=== PATIENT | male | born 1985 | race Caucasian/White ===

== ENCOUNTER 2019-09-15 19:41 | Emergency (ER) | payer SELFPAY ==
[2019-09-15] MEDS ORDERED: Ibuprofen 800 MG TAB ONE (20:26)
== END 2019-09-15 20:34 ==
LOC: MADERS 19:41
DX: R51 Headache (principal); R42 Dizziness and giddiness
CPT/HCPCS: 99284

== ENCOUNTER 2019-09-17 04:56 | Emergency (ER) | payer SELFPAY ==
[2019-09-17 05:31] LABS: Hemoglobin 14.2 g/dL (14.0-18.0); Mean Corpuscular HGB CONC 34.2 g/dL (32.0-36.0); Mean Corpuscular Hemoglobin 30.5 pg (27.0-31.0); Mean Corpuscular Volume 89.3 fL (78.0-98.0); Platelet Count 209 thou/uL (130-400); RBC Distribution Width 11.6 % (11.5-14.5); Red Blood Cell (RBC) Count 4.66 mill/uL (4.70-6.10); White Blood Cell (WBC) Count 7.7 thou/uL (4.8-10.8)
[2019-09-17 05:32] LABS: #Basophils 0.1 thou/uL (0.0-0.2); #Eosinphils 0.4 thou/uL (0.0-0.7); #Lymphocytes 3.5 thou/uL (1.20-3.40); #Monocytes 0.8 thou/uL (0.11-0.59); #Neutrophils 2.9 thou/uL (1.40-6.50); %Basophils 1.6 % (0.0-1.0); %Eosinophils 5.7 % (0.0-10.0); %Lymphocytes 45.8 % (21.0-51.0); %Monocytes 9.7 % (0.0-10.0); %Neutrophils 37.2 % (42.0-75.0)
[2019-09-17 05:44] LABS: ALT (SGPT) 59 U/L (8-55); AST (SGOT) 31 U/L (5-34); Albumin 4.2 g/dL (3.5-5.0); Alkaline Phosphatase 71 U/L (40-110); Anion Gap 16 mmol/L (10-20); BUN (Urea Nitrogen) 15 mg/dL (8.9-20.6); Bilirubin, Total 0.2 mg/dL (0.2-1.2); Calc. Creatinine Clearance 0 mL/min (70-130); Calcium 8.2 mg/dL (7.8-10.44); Carbon Dioxide 17 mmol/L (22-29); Chloride 110 mmol/L (98-107); Estimated GFR-MDRD Greater than 90; Globulin 2.2 g/dL (2.4-3.5); Glucose 116 mg/dL (70-105); Potassium 4.2 mmol/L (3.5-5.1); Protein, Total 6.4 g/dL (6.0-8.3); Sodium 139 mmol/L (136-145)
[2019-09-17] MEDS ORDERED: Lorazepam 1 MG TAB ONE (05:46)
[2019-09-17 06:08] LABS: Bilirubin Negative (Negative); Blood, Urine Negative (Negative); Clarity Clear (Clear); Glucose, Urine (Dipstick) Negative (Negative); Leukocyte Negative (Negative); Nitrite Negative (Negative); Protein, Urine (Dipstick) 30 mg/dL (Neg-Trace); Urobilinogen 0.2 mg/dL (Less than 2)
[2019-09-17 06:13] LABS: Bacteria/HPF Rare-Few HPF (None Seen); RBC/HPF 0-3 HPF (0-3); Squamous Epithelial 0-3 HPF (0-3); WBC/HPF 0-3 HPF (0-3)
[2019-09-17] MEDS ORDERED: Sodium Chloride 0.9% 1,000 ML BAG ONE (06:31)
--- NOTE | 2019-09-17 08:46 | RAD ---
PORTABLE CHEST: DATE; 09/17/2019. PROVIDED CLINICAL HISTORY: Seizure. FINDINGS: Cardiac and mediastinal silhouette is within normal limits. No focal consolidation, pleural fluid, o r pneumothorax apparent. IMPRESSION: No evidence for an acute cardiopulmonary process. POS: [facility]
== END 2019-09-17 06:28 | disposition home or self-care (01) ==
LOC: MADERS 04:56
DX: G40.909 Epilepsy, unspecified, not intractable, without status epilepticus (principal)
CPT/HCPCS: 71045; 80053; 81003; 81015; 83605; 85025; 93005; 96360; J7050

== ENCOUNTER 2019-10-12 23:30 | Emergency (ER) | payer SELFPAY ==
[2019-10-12 23:48] LABS: #Basophils 0.1 thou/uL (0.0-0.2); #Eosinphils 0.5 thou/uL (0.0-0.7); #Lymphocytes 3.1 thou/uL (1.20-3.40); #Monocytes 0.9 thou/uL (0.11-0.59); #Neutrophils 3.7 thou/uL (1.40-6.50); %Basophils 1.4 % (0.0-1.0); %Eosinophils 6.4 % (0.0-10.0); %Lymphocytes 36.7 % (21.0-51.0); %Monocytes 10.8 % (0.0-10.0); %Neutrophils 44.7 % (42.0-75.0); Hemoglobin 14.6 g/dL (14.0-18.0); Mean Corpuscular Hemoglobin 29.9 pg (27.0-31.0); Mean Corpuscular Volume 90.7 fL (78.0-98.0); Mean Platelet Volume 6.2 fL (7.4-10.4); Platelet Count 252 thou/uL (130-400); RBC Distribution Width 12.2 % (11.5-14.5); Red Blood Cell (RBC) Count 4.87 mill/uL (4.70-6.10); White Blood Cell (WBC) Count 8.4 thou/uL (4.8-10.8)
[2019-10-12] MEDS ORDERED: Sodium Chloride 0.9% 1,000 ML ONE (23:50)
[2019-10-13 00:02] LABS: Bilirubin Negative (Negative); Blood, Urine Trace (Negative); Clarity Clear (Clear); Glucose, Urine (Dipstick) Negative (Negative); Leukocyte Negative (Negative); Nitrite Negative (Negative); Protein, Urine (Dipstick) 30 mg/dL (Neg-Trace); Urobilinogen 0.2 mg/dL (Less than 2)
[2019-10-13 00:07] LABS: ALT (SGPT) 44 U/L (8-55); AST (SGOT) 26 U/L (5-34); Albumin 4.4 g/dL (3.5-5.0); Alkaline Phosphatase 68 U/L (40-110); Anion Gap 19 mmol/L (10-20); BUN (Urea Nitrogen) 9 mg/dL (8.9-20.6); Bilirubin, Total 0.2 mg/dL (0.2-1.2); Calc. Creatinine Clearance 0 mL/min (70-130); Calcium 9.1 mg/dL (7.8-10.44); Carbon Dioxide 21 mmol/L (22-29); Chloride 103 mmol/L (98-107); Estimated GFR-MDRD Greater than 90; Globulin 2.6 g/dL (2.4-3.5); Glucose 85 mg/dL (70-105); Sodium 139 mmol/L (136-145)
[2019-10-13 00:09] LABS: Bacteria/HPF None Seen HPF (None Seen); RBC/HPF 0-3 HPF (0-3); Squamous Epithelial None Seen HPF (0-3); WBC/HPF None Seen HPF (0-3)
[2019-10-13 00:12] LABS: Amphetamine Not Detected (NotDetected); Barbiturates Screen Detected (NotDetected); Benzodiazepine Screen Not Detected (NotDetected); Cocaine Metabolite Screen Not Detected (NotDetected); Medtox Control Line Valid? VALID (VALID); Methadone Not Detected (NotDetected); Methamphetamine Not Detected (NotDetected); Opiate Screen Not Detected (NotDetected); Oxycodone Screen Not Detected (NotDetected); Phencyclidine (PCP) Not Detected (NotDetected); THC/Cannabinoid Screen Not Detected (NotDetected); Tricyclic Screen Not Detected (NotDetected)
== END 2019-10-13 00:35 ==
LOC: MADERS 23:30
DX: G40.909 Epilepsy, unspecified, not intractable, without status epilepticus (principal); Z87.891 Personal history of nicotine dependence; Z79.899 Other long term (current) drug therapy
CPT/HCPCS: 80053; 80185; 80306; 81003; 81015; 85025; 99284; J7050

== ENCOUNTER 2020-01-15 10:38 | Emergency (ER) | payer SELFPAY ==
[2020-01-15] MEDS ORDERED: Ondansetron ODT 4 MG TAB ONE (11:13)
--- NOTE | 2020-01-15 11:20 | CT ---
CT BRAIN NONCONTRAST: DATE: 01/15/2020 HISTORY: 34-year-old male status post acute head trauma from fall due to seizure FINDINGS: There is no evidence of acute intra-axial or extra-axial hemorrhage. There is no midline shift or any other mass effect. There is no extra-axial fluid collection. There is no evidence of obstructive hydrocephalus. Calvarium is intact. Superficial soft tissue swelling of right periorbital and right f orehead . IMPRESSION: 1. No acute intracranial findings. 2. Acute, traumatic, right periorbital and right frontal scalp contusion.
[2020-01-15 11:33] LABS: #Basophils 0.1 thou/uL (0.0-0.2); #Eosinphils 0.1 thou/uL (0.0-0.7); #Lymphocytes 1.8 thou/uL (1.20-3.40); #Monocytes 0.7 thou/uL (0.11-0.59); #Neutrophils 8.4 thou/uL (1.40-6.50); %Eosinophils 0.8 % (0.0-10.0); %Lymphocytes 16.2 % (21.0-51.0); %Monocytes 6.4 % (0.0-10.0); %Neutrophils 75.7 % (42.0-75.0); Mean Corpuscular HGB CONC 33.4 g/dL (32.0-36.0); Mean Corpuscular Hemoglobin 29.1 pg (27.0-31.0); Mean Corpuscular Volume 87.3 fL (78.0-98.0); Mean Platelet Volume 6.4 fL (7.4-10.4); Platelet Count 241 thou/uL (130-400); RBC Distribution Width 11.5 % (11.5-14.5); Red Blood Cell (RBC) Count 5.14 mill/uL (4.70-6.10)
[2020-01-15 11:51] LABS: ALT (SGPT) 32 U/L (8-55); AST (SGOT) 24 U/L (5-34); Acetaminophen Less than 6.0 mcg/mL (10.0-30.0); Albumin 4.5 g/dL (3.5-5.0); Alcohol Less than 10 mg/dL (Less than 10); Alkaline Phosphatase 82 U/L (40-110); Anion Gap 17 mmol/L (10-20); BUN (Urea Nitrogen) 10 mg/dL (8.9-20.6); Bilirubin, Total 0.3 mg/dL (0.2-1.2); Calc. Creatinine Clearance 0 mL/min (70-130); Calcium 8.5 mg/dL (7.8-10.44); Carbon Dioxide 22 mmol/L (22-29); Chloride 103 mmol/L (98-107); Estimated GFR-MDRD Greater than 90; Globulin 2.5 g/dL (2.4-3.5); Glucose 126 mg/dL (70-105); Potassium 4.5 mmol/L (3.5-5.1); Salicylate Less than 8.0 mg/dL (15.0-30.0); Sodium 137 mmol/L (136-145)
[2020-01-15] MEDS ORDERED: Lidocaine 1% w/Epinephrine 1:100K 20 ML VIAL ONE (11:55)
--- NOTE | 2020-01-15 12:22 | CT ---
CT CERVICAL SPINE WITHOUT CONTRAST: HISTORY: Seizure. Fall with pain. COMPARISON: CT of the cervical spine from 2014. FINDINGS: The mastoids are clear. The visualized mandible is intact. The odontoid process is intact. Occipit al condyles are intact. No acute traumatic facet joint widening. Transverse processes are intact. Lung apices are clear. Paraspinal soft tissues are unremarkable. Small reactive cervical lymph nodes. Visualized posterior ribs are intact. Large erosion with loss of normal focal surface of the right maxillary alveolar bone at the 1st molar roots. IMPRESSION: 1. No acute fracture or malalignment of the cervical spine. 2. Severe erosive changes along the root of the right 1st maxillary molar alveolar bone. POS: [facility]
--- NOTE | 2020-01-15 12:31 | CT ---
CT FACE WITHOUT CONTRAST: HISTORY: Seizure, fall. COMPARISON: None. FINDINGS: The mandible is intact. Large erosions along the root of the right alveolar maxillary bone at the 3r d molar. Upper cervical spine is intact. Mastoids are clear. The zygoma and zygomatic arches are intact. The medial orbital rinaldi, lateral o rbital rinaldi, orbital floor, and orbital roots are intact. Right periorbital soft tissue contusion. Abnormal appearance of the lens of the right globe. The right lens does not appear to be as discoid as the left lens. This, however, could be due to motion. Evidence of prior mucosal sinus surgery. IMPRESSION: 1. No acute fracture of the face. 2. Right periorbital soft tissue contusion. 3. On the axial images, there appears to be an elongation of the right orbital limb, although on the sagittal views does not appear as irregular and could be sequelae of motion, although direct visuali zation and ophthalmologic consultation is advised. 4. 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 5. Large erosion of the right maxillary alveolar bone with erosion of the focal surface at location of the 3rd molar roots and 1st premolar toward the root of the 1st premolar is angulated laterally th rough the focal alveolar bone defect. POS: [facility]
== END 2020-01-15 13:25 | disposition home or self-care (01) ==
LOC: MADERS 10:38
DX: G40.909 Epilepsy, unspecified, not intractable, without status epilepticus (principal); S01.81XA Laceration without foreign body of other part of head, initial encounter; Z87.891 Personal history of nicotine dependence
CPT/HCPCS: 12002; 70450; 70486; 72125; 80053; 80185; 80307; 85025; Q0162

== ENCOUNTER 2020-01-21 11:39 | Emergency (ER) | payer SELFPAY | END 2020-01-21 12:14 | disposition home or self-care (01) | LOC: MADERS 11:39 | DX: S01.111D Laceration without foreign body of right eyelid and periocular area, subsequent encounter (principal); Z79.899 Other long term (current) drug therapy; Z87.891 Personal history of nicotine dependence; W22.8XXD Striking against or struck by other objects, subsequent encounter ==

== ENCOUNTER 2020-12-07 03:29 | Emergency (ER) | payer SELFPAY ==
[2020-12-07] MEDS ORDERED: Clindamycin 150 MG CAP ONE (04:01)
[2020-12-07 04:19] LABS: Hemoglobin 15.9 g/dL (14.0-18.0); Mean Corpuscular HGB CONC 34.8 g/dL (32.0-36.0); Mean Corpuscular Hemoglobin 30.8 pg (27.0-31.0); Mean Corpuscular Volume 88.5 fL (78.0-98.0); Mean Platelet Volume 7.4 fL (7.4-10.4); Platelet Count 213 thou/uL (130-400); RBC Distribution Width 11.2 % (11.5-14.5); Red Blood Cell (RBC) Count 5.17 mill/uL (4.70-6.10); White Blood Cell (WBC) Count 15.7 thou/uL (4.8-10.8)
[2020-12-07 04:28] LABS: Eosinophils 2 % (0-10); Lymphocytes 14 % (21-51); MDiff Complete? YES; Monocytes 1 % (0-10); Neutrophil 83 % (42-75); Platelet Morphology Comment Appears Adequate; RBC Morphology Normal
[2020-12-07 04:31] LABS: ALT (SGPT) 16 U/L (8-55); AST (SGOT) 15 U/L (5-34); Albumin 4.4 g/dL (3.5-5.0); Alkaline Phosphatase 94 U/L (40-110); Anion Gap 15 mmol/L (10-20); BUN (Urea Nitrogen) 8 mg/dL (8.9-20.6); Bilirubin, Total 0.4 mg/dL (0.2-1.2); Calc. Creatinine Clearance 0 mL/min (70-130); Calcium 8.8 mg/dL (7.8-10.44); Carbon Dioxide 21 mmol/L (22-29); Chloride 107 mmol/L (98-107); Globulin 2.2 g/dL (2.4-3.5); Glucose 107 mg/dL (70-105); Potassium 3.8 mmol/L (3.5-5.1); Protein, Total 6.6 g/dL (6.0-8.3); Sodium 139 mmol/L (136-145)
== END 2020-12-07 04:53 | disposition home or self-care (01) ==
LOC: MADERS 03:29
DX: K04.7 Periapical abscess without sinus (principal); R56.9 Unspecified convulsions; Z87.891 Personal history of nicotine dependence; Z79.899 Other long term (current) drug therapy
CPT/HCPCS: 80053; 83605; 85025; 99284

== ENCOUNTER 2021-01-07 09:37 | Emergency (ER) | payer SELFPAY | END 2021-01-07 10:15 | disposition home or self-care (01) | LOC: MADERS 09:37 | DX: R20.2 Paresthesia of skin (principal); F17.210 Nicotine dependence, cigarettes, uncomplicated; Z79.899 Other long term (current) drug therapy | CPT/HCPCS: 99283 ==

== ENCOUNTER 2021-02-07 06:15 | Emergency (ER) | payer SELFPAY ==
[2021-02-07] MEDS ORDERED: Lactated Ringer's 1,000 ML ONE (06:35)
[2021-02-07 06:54] LABS: #Basophils 0.1 thou/uL (0.0-0.2); #Eosinphils 0.2 thou/uL (0.0-0.7); #Lymphocytes 2.3 thou/uL (1.20-3.40); #Monocytes 0.7 thou/uL (0.11-0.59); #Neutrophils 5.8 thou/uL (1.40-6.50); %Basophils 1.1 % (0.0-1.0); %Eosinophils 2.4 % (0.0-10.0); %Lymphocytes 25.5 % (21.0-51.0); %Monocytes 7.7 % (0.0-10.0); %Neutrophils 63.4 % (42.0-75.0); Hemoglobin 17.7 g/dL (14.0-18.0); Mean Corpuscular HGB CONC 33.3 g/dL (32.0-36.0); Mean Corpuscular Volume 89.9 fL (78.0-98.0); Platelet Count 253 thou/uL (130-400); RBC Distribution Width 11.5 % (11.5-14.5); Red Blood Cell (RBC) Count 5.92 mill/uL (4.70-6.10); White Blood Cell (WBC) Count 9.2 thou/uL (4.8-10.8)
[2021-02-07 07:13] LABS: ALT (SGPT) 23 U/L (8-55); AST (SGOT) 16 U/L (5-34); Albumin 5.1 g/dL (3.5-5.0); Alkaline Phosphatase 118 U/L (40-110); Anion Gap 18 mmol/L (10-20); BUN (Urea Nitrogen) 6 mg/dL (8.9-20.6); Bilirubin, Total 0.5 mg/dL (0.2-1.2); Calc. Creatinine Clearance 0 mL/min (70-130); Carbon Dioxide 23 mmol/L (22-29); Chloride 103 mmol/L (98-107); Globulin 2.9 g/dL (2.4-3.5); Glucose 87 mg/dL (70-105); Potassium 3.6 mmol/L (3.5-5.1); Sodium 140 mmol/L (136-145)
[2021-02-07 07:21] LABS: Acetaminophen Less than 6.0 mcg/mL (10.0-30.0); Alcohol Less than 10 mg/dL (Less than 10); Salicylate Less than 8.0 mg/dL (15.0-30.0)
== END 2021-02-07 08:06 | disposition home or self-care (01) ==
LOC: MADERS 06:15
DX: R41.3 Other amnesia (principal); G40.909 Epilepsy, unspecified, not intractable, without status epilepticus; Z79.899 Other long term (current) drug therapy; F17.210 Nicotine dependence, cigarettes, uncomplicated
CPT/HCPCS: 70450; 80053; 80307; 84443; 85025; 93005; J7120

== ENCOUNTER 2021-02-09 11:00 | Emergency (ER) | payer SELFPAY ==
[~2021-02-09 11:00] MED LIST: Sodium Chloride 0.9% 100 ML BAG ONE
[2021-02-09 12:00] LABS: #Basophils 0.2 thou/uL (0.0-0.2); #Eosinphils 0.1 thou/uL (0.0-0.7); #Lymphocytes 1.7 thou/uL (1.20-3.40); #Monocytes 1.6 thou/uL (0.11-0.59); %Basophils 1.4 % (0.0-1.0); %Eosinophils 0.5 % (0.0-10.0); %Lymphocytes 10.3 % (21.0-51.0); %Monocytes 9.4 % (0.0-10.0); %Neutrophils 78.5 % (42.0-75.0); Hemoglobin 16.7 g/dL (14.0-18.0); Mean Corpuscular HGB CONC 33.1 g/dL (32.0-36.0); Mean Corpuscular Hemoglobin 29.9 pg (27.0-31.0); Mean Corpuscular Volume 90.1 fL (78.0-98.0); Platelet Count 242 thou/uL (130-400); RBC Distribution Width 11.6 % (11.5-14.5); Red Blood Cell (RBC) Count 5.59 mill/uL (4.70-6.10); White Blood Cell (WBC) Count 16.6 thou/uL (4.8-10.8)
[2021-02-09 12:14] LABS: ALT (SGPT) 21 U/L (8-55); AST (SGOT) 21 U/L (5-34); Alkaline Phosphatase 109 U/L (40-110); Anion Gap 17 mmol/L (10-20); BUN (Urea Nitrogen) 10 mg/dL (8.9-20.6); Bilirubin, Total 0.7 mg/dL (0.2-1.2); Calc. Creatinine Clearance 0 mL/min (70-130); Carbon Dioxide 21 mmol/L (22-29); Chloride 104 mmol/L (98-107); Globulin 2.5 g/dL (2.4-3.5); Glucose 111 mg/dL (70-105); Potassium 3.9 mmol/L (3.5-5.1); Protein, Total 7.5 g/dL (6.0-8.3); Sodium 138 mmol/L (136-145)
[2021-02-09] MEDS ORDERED: Lorazepam 2 MG/ML VIAL ONE (14:21)
[2021-02-09] MEDS ORDERED: Fosphenytoin Sodium 500 mg/10 ml Vial ONE (14:54)
== END 2021-02-09 21:35 | disposition home or self-care (01) ==
LOC: MADERS 11:00
DX: G40.909 Epilepsy, unspecified, not intractable, without status epilepticus (principal); F17.210 Nicotine dependence, cigarettes, uncomplicated; Z79.899 Other long term (current) drug therapy
CPT/HCPCS: 36415; 71045; 80053; 83605; 85025; 93005; 96365; 96375; J2060; J3490; Q2009

== ENCOUNTER 2021-02-10 21:52 | Emergency (ER) | payer SELFPAY ==
[2021-02-10 22:25] LABS: #Basophils 0.2 thou/uL (0.0-0.2); #Eosinphils 0.1 thou/uL (0.0-0.7); #Lymphocytes 1.6 thou/uL (1.20-3.40); %Basophils 1.4 % (0.0-1.0); %Eosinophils 0.4 % (0.0-10.0); %Lymphocytes 13.6 % (21.0-51.0); %Monocytes 8.2 % (0.0-10.0); %Neutrophils 76.3 % (42.0-75.0); Hemoglobin 16.7 g/dL (14.0-18.0); Mean Corpuscular HGB CONC 33.4 g/dL (32.0-36.0); Mean Corpuscular Hemoglobin 30.4 pg (27.0-31.0); Mean Platelet Volume 6.8 fL (7.4-10.4); Platelet Count 275 thou/uL (130-400); RBC Distribution Width 11.3 % (11.5-14.5); Red Blood Cell (RBC) Count 5.48 mill/uL (4.70-6.10); White Blood Cell (WBC) Count 11.8 thou/uL (4.8-10.8)
[2021-02-10 22:48] LABS: ALT (SGPT) 20 U/L (8-55); AST (SGOT) 21 U/L (5-34); Albumin 5.1 g/dL (3.5-5.0); Alkaline Phosphatase 115 U/L (40-110); Anion Gap 23 mmol/L (10-20); BUN (Urea Nitrogen) 9 mg/dL (8.9-20.6); Bilirubin, Total 0.9 mg/dL (0.2-1.2); Calc. Creatinine Clearance 0 mL/min (70-130); Calcium 10.3 mg/dL (7.8-10.44); Carbon Dioxide 19 mmol/L (22-29); Chloride 102 mmol/L (98-107); Globulin 2.6 g/dL (2.4-3.5); Glucose 108 mg/dL (70-105); Potassium 4.1 mmol/L (3.5-5.1); Protein, Total 7.7 g/dL (6.0-8.3); Sodium 140 mmol/L (136-145)
[2021-02-10 22:49] LABS: Acetaminophen Less than 6.0 mcg/mL (10.0-30.0); Alcohol Less than 10 mg/dL (Less than 10); Salicylate Less than 8.0 mg/dL (15.0-30.0)
[2021-02-10 23:34] LABS: Bilirubin Moderate (Negative); Blood, Urine Trace (Negative); Clarity Clear (Clear); Glucose, Urine (Dipstick) Negative (Negative); Ketone, Urine > or equal to 80 mg/dL (Negative); Leukocyte Negative (Negative); Nitrite Negative (Negative); Protein, Urine (Dipstick) 100 mg/dL (Neg-Trace); pH, Urine 5.5 (5.0-9.0)
[2021-02-10 23:42] LABS: Bacteria/HPF None Seen HPF (None Seen); RBC/HPF 0-3 HPF (0-3); Squamous Epithelial 0-3 HPF (0-3); WBC/HPF 0-3 HPF (0-3)
[2021-02-10 23:44] LABS: Amphetamine Not Detected (NotDetected); Barbiturates Screen Detected (NotDetected); Benzodiazepine Screen Detected (NotDetected); Cocaine Metabolite Screen Not Detected (NotDetected); Medtox Control Line Valid? VALID (VALID); Methadone Not Detected (NotDetected); Methamphetamine Not Detected (NotDetected); Opiate Screen Not Detected (NotDetected); Oxycodone Screen Not Detected (NotDetected); Phencyclidine (PCP) Not Detected (NotDetected); THC/Cannabinoid Screen Not Detected (NotDetected); Tricyclic Screen Not Detected (NotDetected)
== END 2021-02-11 03:29 | disposition home or self-care (01) ==
LOC: MADERS 21:52
DX: F23 Brief psychotic disorder (principal); E86.0 Dehydration; G43.909 Migraine, unspecified, not intractable, without status migrainosus; F17.210 Nicotine dependence, cigarettes, uncomplicated; Z79.899 Other long term (current) drug therapy
CPT/HCPCS: 80053; 80306; 80307; 81003; 81015; 82550; 83605; 84443; 85025; 99285

== ENCOUNTER 2021-02-11 14:05 | Emergency (ER) | payer SELFPAY ==
[2021-02-12 10:13] LABS: Amphetamine Not Detected (NotDetected); Barbiturates Screen Detected (NotDetected); Benzodiazepine Screen Not Detected (NotDetected); Cocaine Metabolite Screen Not Detected (NotDetected); Medtox Control Line Valid? VALID (VALID); Methadone Not Detected (NotDetected); Methamphetamine Not Detected (NotDetected); Opiate Screen Not Detected (NotDetected); Oxycodone Screen Not Detected (NotDetected); Phencyclidine (PCP) Not Detected (NotDetected); THC/Cannabinoid Screen Not Detected (NotDetected); Tricyclic Screen Not Detected (NotDetected)
[2021-02-12 10:14] LABS: Clarity Clear (Clear); Glucose, Urine (Dipstick) Negative (Negative); Leukocyte Negative (Negative); Nitrite Negative (Negative); Protein, Urine (Dipstick) 30 mg/dL (Neg-Trace); Specific Gravity, Urine 1.023 (1.002-1.036); pH, Urine 5.5 (5.0-9.0)
[2021-02-12 10:15] LABS: Bacteria/HPF Rare-Few HPF (None Seen); Bilirubin Moderate (Negative); Blood, Urine Negative (Negative); Ketone, Urine > or equal to 80 mg/dL (Negative); RBC/HPF 0-3 HPF (0-3); Squamous Epithelial 0-3 HPF (0-3); WBC/HPF 0-3 HPF (0-3)
[2021-02-12 10:16] LABS: Hemoglobin 15.5 g/dL (14.0-18.0); Red Blood Cell (RBC) Count 5.04 mill/uL (4.70-6.10); White Blood Cell (WBC) Count 11.8 thou/uL (4.8-10.8)
[2021-02-12 10:17] LABS: #Neutrophils 7.6 thou/uL (1.40-6.50); %Basophils 2.1 % (0.0-1.0); %Eosinophils 2.6 % (0.0-10.0); %Monocytes 9.7 % (0.0-10.0); %Neutrophils 64.7 % (42.0-75.0); Mean Corpuscular HGB CONC 33.9 g/dL (32.0-36.0); Mean Corpuscular Hemoglobin 30.7 pg (27.0-31.0); Mean Corpuscular Volume 90.6 fL (78.0-98.0); Platelet Count 214 thou/uL (130-400); RBC Distribution Width 11.1 % (11.5-14.5)
[2021-02-12 10:18] LABS: #Basophils 0.2 thou/uL (0.0-0.2); #Eosinphils 0.3 thou/uL (0.0-0.7); #Lymphocytes 2.5 thou/uL (1.20-3.40); #Monocytes 1.1 thou/uL (0.11-0.59)
[2021-02-12 10:19] LABS: Albumin 4.6 g/dL (3.5-5.0); Anion Gap 21 mmol/L (10-20); BUN (Urea Nitrogen) 5 mg/dL (8.9-20.6); Calc. Creatinine Clearance 0 mL/min (70-130); Calcium 9.8 mg/dL (7.8-10.44); Carbon Dioxide 18 mmol/L (22-29); Chloride 102 mmol/L (98-107); Globulin 2.4 g/dL (2.4-3.5); Glucose 76 mg/dL (70-105); Potassium 3.2 mmol/L (3.5-5.1); Sodium 138 mmol/L (136-145)
[2021-02-12 10:20] LABS: ALT (SGPT) 19 U/L (8-55); AST (SGOT) 20 U/L (5-34); Acetaminophen Less than 6.0 mcg/mL (10.0-30.0); Alcohol Less than 10 mg/dL (Less than 10); Alkaline Phosphatase 110 U/L (40-110); Salicylate Less than 8.0 mg/dL (15.0-30.0)
== END 2021-02-11 16:24 | disposition home or self-care (01) ==
LOC: MADERS 14:05
DX: G40.909 Epilepsy, unspecified, not intractable, without status epilepticus (principal); F17.210 Nicotine dependence, cigarettes, uncomplicated; Z79.899 Other long term (current) drug therapy
CPT/HCPCS: 70450; 71045; 80053; 80185; 80306; 80307; 81001; 85025

== ENCOUNTER 2021-03-15 22:29 | Emergency (ER) | payer SELFPAY | END 2021-03-15 22:47 | disposition home or self-care (01) | LOC: MADERS 22:29 | DX: G40.909 Epilepsy, unspecified, not intractable, without status epilepticus (principal); F17.210 Nicotine dependence, cigarettes, uncomplicated; Z79.899 Other long term (current) drug therapy | CPT/HCPCS: 99284 ==

== ENCOUNTER 2021-03-23 20:26 | Emergency (ER) | payer SELFPAY | END 2021-03-23 23:40 | disposition home or self-care (01) | LOC: MADERS 20:26 | DX: G40.909 Epilepsy, unspecified, not intractable, without status epilepticus (principal); Z87.891 Personal history of nicotine dependence; Z79.899 Other long term (current) drug therapy | CPT/HCPCS: 36415; 80185; 99284 ==

== ENCOUNTER 2021-05-19 20:51 | Emergency (ER) | payer SELFPAY ==
[2021-05-19 21:49] LABS: Anion Gap 14 mmol/L (10-20); BUN (Urea Nitrogen) 15 mg/dL (8.9-20.6); Calc. Creatinine Clearance 0 mL/min (70-130); Calcium 9.6 mg/dL (7.8-10.44); Carbon Dioxide 26 mmol/L (22-29); Chloride 103 mmol/L (98-107); Glucose 95 mg/dL (70-105); Sodium 139 mmol/L (136-145)
[2021-05-20 01:58] LABS: Dilantin 8.6 ug/mL (10.0-20.0)
== END 2021-05-19 21:57 | disposition home or self-care (01) ==
LOC: MADERS 20:51
DX: R20.2 Paresthesia of skin (principal); G40.909 Epilepsy, unspecified, not intractable, without status epilepticus; Z87.891 Personal history of nicotine dependence
CPT/HCPCS: 80048; 80185; 99284

== ENCOUNTER 2021-05-22 15:00 | Emergency (ER) | payer SELFPAY ==
[2021-05-22] MEDS ORDERED: Sodium Chloride 0.9% 100 ML ONE (15:39)
[2021-05-22] MEDS ORDERED: Fosphenytoin Sodium 500 mg/10 ml Vial ONE ×2 (15:39→18:47)
[2021-05-22 15:56] LABS: #Basophils 0.1 thou/uL (0.0-0.2); #Eosinphils 0.2 thou/uL (0.0-0.7); #Lymphocytes 1.9 thou/uL (1.20-3.40); #Monocytes 0.6 thou/uL (0.11-0.59); #Neutrophils 4.7 thou/uL (1.40-6.50); %Basophils 1.6 % (0.0-1.0); %Eosinophils 3.1 % (0.0-10.0); %Lymphocytes 25.2 % (21.0-51.0); %Monocytes 7.8 % (0.0-10.0); %Neutrophils 62.3 % (42.0-75.0); Hemoglobin 15.5 g/dL (14.0-18.0); Mean Corpuscular HGB CONC 33.4 g/dL (32.0-36.0); Mean Corpuscular Hemoglobin 29.6 pg (27.0-31.0); Mean Corpuscular Volume 88.6 fL (78.0-98.0); Mean Platelet Volume 5.5 fL (7.4-10.4); Platelet Count 202 thou/uL (130-400); RBC Distribution Width 11.1 % (11.5-14.5); Red Blood Cell (RBC) Count 5.23 mill/uL (4.70-6.10); White Blood Cell (WBC) Count 7.5 thou/uL (4.8-10.8)
[2021-05-22 16:01] LABS: ALT (SGPT) 36 U/L (8-55); AST (SGOT) 17 U/L (5-34); Albumin 4.4 g/dL (3.5-5.0); Alkaline Phosphatase 75 U/L (40-110); Anion Gap 12 mmol/L (10-20); BUN (Urea Nitrogen) 10 mg/dL (8.9-20.6); Bilirubin, Total Less than 0.2 mg/dL (0.2-1.2); Calc. Creatinine Clearance 0 mL/min (70-130); Calcium 9.3 mg/dL (7.8-10.44); Carbon Dioxide 24 mmol/L (22-29); Chloride 106 mmol/L (98-107); Globulin 2.5 g/dL (2.4-3.5); Glucose 101 mg/dL (70-105); Potassium 4.1 mmol/L (3.5-5.1); Protein, Total 6.9 g/dL (6.0-8.3); Sodium 138 mmol/L (136-145)
[2021-05-22] MEDS ORDERED: Lorazepam 2 MG/ML VIAL ONE (17:10)
[2021-05-22] MEDS ORDERED: Sodium Chloride 0.9% 1,000 ML ONE (17:33)
[2021-05-22 18:22] LABS: Dilantin Less than 1.8 ug/mL (10.0-20.0)
[2021-05-22 19:38] LABS: Lactic Acid 2.9 mmol/L (0.5-2.2)
== END 2021-05-22 20:56 | disposition short-term general hospital (02) ==
LOC: MADERS 15:00
DX: R56.9 Unspecified convulsions (principal); J98.11 Atelectasis; Z87.891 Personal history of nicotine dependence; Z79.899 Other long term (current) drug therapy
CPT/HCPCS: 36415; 36416; 71045; 80053; 80185; 83605; 85025; 96365; 96366; 96375; J2060; J3490; J7050; Q2009

== ENCOUNTER 2021-06-18 19:57 | Emergency (ER) | payer SELFPAY ==
[2021-06-18] MEDS ORDERED: Ketorolac Tromethamine 30 MG/ML VIAL ONE (21:30)
[2021-06-18] MEDS ORDERED: Lorazepam 2 MG/ML VIAL ONE (21:30)
[2021-06-18] MEDS ORDERED: Lactated Ringer's 1,000 ML ONE (21:30)
[2021-06-18 21:49] LABS: #Basophils 0.1 thou/uL (0.0-0.2); #Eosinphils 0.3 thou/uL (0.0-0.7); #Lymphocytes 2.4 thou/uL (1.20-3.40); #Monocytes 0.8 thou/uL (0.11-0.59); #Neutrophils 3.8 thou/uL (1.40-6.50); %Eosinophils 3.6 % (0.0-10.0); %Lymphocytes 32.6 % (21.0-51.0); %Monocytes 11.3 % (0.0-10.0); %Neutrophils 50.5 % (42.0-75.0); Hemoglobin 15.6 g/dL (14.0-18.0); Mean Corpuscular HGB CONC 33.5 g/dL (32.0-36.0); Mean Corpuscular Hemoglobin 29.3 pg (27.0-31.0); Mean Corpuscular Volume 87.4 fL (78.0-98.0); Mean Platelet Volume 5.6 fL (7.4-10.4); Platelet Count 237 thou/uL (130-400); RBC Distribution Width 10.6 % (11.5-14.5); Red Blood Cell (RBC) Count 5.33 mill/uL (4.70-6.10); White Blood Cell (WBC) Count 7.5 thou/uL (4.8-10.8)
[2021-06-18 22:07] LABS: ALT (SGPT) 30 U/L (8-55); AST (SGOT) 16 U/L (5-34); Albumin 4.6 g/dL (3.5-5.0); Alkaline Phosphatase 78 U/L (40-110); Anion Gap 16 mmol/L (10-20); BUN (Urea Nitrogen) 11 mg/dL (8.9-20.6); Bilirubin, Total 0.3 mg/dL (0.2-1.2); Calc. Creatinine Clearance 0 mL/min (70-130); Calcium 8.7 mg/dL (7.8-10.44); Carbon Dioxide 24 mmol/L (22-29); Chloride 103 mmol/L (98-107); Globulin 2.3 g/dL (2.4-3.5); Glucose 94 mg/dL (70-105); Potassium 3.8 mmol/L (3.5-5.1); Protein, Total 6.9 g/dL (6.0-8.3); Sodium 139 mmol/L (136-145)
== END 2021-06-18 23:02 | disposition home or self-care (01) ==
LOC: MADERS 19:57
DX: G40.909 Epilepsy, unspecified, not intractable, without status epilepticus (principal); G43.909 Migraine, unspecified, not intractable, without status migrainosus; Z87.891 Personal history of nicotine dependence
CPT/HCPCS: 80053; 85025; 94760; 96374; 96375; J1885; J2060; J7120

== ENCOUNTER 2021-09-12 12:17 | Emergency (ER) | payer SELFPAY ==
[2021-09-12] MEDS ORDERED: Lidocaine 1% (PF) 30 ML VIAL ONE (13:21)
[2021-09-12] MEDS ORDERED: Boostrix 0.5 ML (Tdap) VIAL ONE (13:21)
== END 2021-09-12 15:10 | disposition home or self-care (01) ==
LOC: MADERS 12:17
DX: S01.81XA Laceration without foreign body of other part of head, initial encounter (principal); G40.909 Epilepsy, unspecified, not intractable, without status epilepticus; Z23 Encounter for immunization; Z79.899 Other long term (current) drug therapy; Z87.891 Personal history of nicotine dependence; W55.12XA Struck by horse, initial encounter; Y93.H9 Activity, other involving exterior property and land maintenance, building and construction
CPT/HCPCS: 12011; 70450; 70486; 90471; 90715; J2001

== ENCOUNTER 2021-10-27 07:33 | Emergency (ER) | payer SELFPAY ==
[2021-10-27] MEDS ORDERED: Tetracaine 0.5% PF 4 ML BOT ONE (08:02)
== END 2021-10-27 08:40 | disposition home or self-care (01) ==
LOC: MADERS 07:33
DX: H04.322 Acute dacryocystitis of left lacrimal passage (principal); Z87.891 Personal history of nicotine dependence
CPT/HCPCS: 99283